=== PATIENT | male | born 1985 | race Asian ===

== ENCOUNTER → 2016-09-01 00:18 | Emergency (ER) | payer OTHER ==
[~2016-09-01 00:18] MED LIST: NS 0.9% 1000 ML* 1,000 ML IV ONE; Ondansetron INJ* 2 MG/ML VIAL IV ONE
--- NOTE | 2016-09-01 01:38 | ED ---
Kahlil Boyd Erika, scribed for Isidoro Rojas MD on 09/01/16 at 0138 . Abdominal Pain/Male - HPI Summary HPI Summary: Patient is a 30-year-old male presenting to the ED with a CC of diffuse abdominal pain. Patient reports that he has developed similar pains 3 times in the past 3 months. He states he saw a doctor last time he had the pain, with no findings to explain the pain. Current episode started at 22:00. Pt notes nausea , but denies diarrhea. - History of Current Complaint Chief Complaint: EDAbdPain Stated Complaint: ABD PAIN Time Seen by Provider: 09/01/16 01:21 Hx Obtained From: Patient Onset/Duration: Lasting Hours, Still Present Timing: Constant Severity Currently: Moderate Pain Intensity: 9 Pain Scale Used: 0-10 Numeric Location: Diffuse Radiates: No Alleviating Factor(s): Nothing Associated Signs And Symptoms: Positive: Nausea. Negative: Diarrhea - Allergies/Home Medications Allergies/Adverse Reactions: Allergies Allergy/AdvReac Type Severity Reaction Status Date / Time No Known Allergies Allergy Verified 09/01/16 01:50 PMH/Surg Hx/FS Hx/Imm Hx Endocrine/Hematology History: Denies: Hx Diabetes Cardiovascular History: Denies: Hx Hypertension Infectious Disease History: No Infectious Disease History: Denies: Traveled Outside the [place] in Last 30 Days - Family History Known Family History: Negative: Diabetes - Social History Occupation: Student Alcohol Use: None Hx Substance Use: No Substance Use Type: Reports: None Hx Tobacco Use: No Smoking Status (MU): Never Smoked Tobacco Review of Systems Negative: Fever Positive: Abdominal Pain, Nausea. Negative: Diarrhea All Other Systems Reviewed And Are Negative: Yes Physical Exam Triage Information Reviewed: Yes Vital Signs On Initial Exam: Initial Vitals Temp Pulse Resp BP Pulse Ox 98 F 60 16 123/94 100 09/01/16 00:21 09/01/16 00:21 09/01/16 00:21 09/01/16 00:21 09/01/16 00:21 Vital Signs Reviewed: Yes Appearance: Positive: Well-Appearing, No Pain Distress Skin: Positive: Warm Head/Face: Positive: Normal Head/Face Inspection Eyes: Positive: SARAH ENT: Positive: Hearing grossly normal Neck: Positive: Supple Respiratory/Lung Sounds: Positive: Clear to Auscultation, Breath Sounds Present Cardiovascular: Positive: RRR Abdomen Description: Positive: Nontender, No Organomegaly, Soft Bowel Sounds: Positive: Present Musculoskeletal: Positive: Strength/ROM Intact Neurological: Positive: Alert, Oriented to Person Place, Time Psychiatric: Positive: Affect/Mood Appropriate - [place] Coma Scale Coma Scale Total: 15 Diagnostics - Vital Signs Vital Signs Temp Pulse Resp BP Pulse Ox 09/01/16 00:21 98 F 60 16 123/94 100 - Laboratory Lab Statement: Any lab studies that have been ordered have been reviewed, and results considered in the medical decision making process. Re-Evaluation - Re-Evaluation First Eval Re-Evaluation Time: 01:55 Change: Improved Comment: Pt requests discharge at this time, prior to lab work being drawn. Abdominal Pain Fem Course/Dx - Course Assessment/Plan: A 30 y/o M presents to the ED with a CC of diffuse abdominal pain. Pt reports similar episodes in the past. Zofran, IV fluids, and blood work are ordered, but pt declines and requests discharge. He is discharged home with follow up from his PCP. - Diagnoses Provider Diagnoses: Abdominal pain Discharge - Discharge Plan Condition: Improved Disposition: HOME Patient Education Materials: Abdominal Pain (ED) Referrals: [facility] [Primary Care Provider] - 2 Days Additional Instructions: Please follow up with your PCP. The documentation as recorded by the Kahlil matthew Erika accurately reflects the service I personally performed and the decisions made by me, Isidoro Rojas MD.
[2016-09-01 02:25] VITALS: BP 110/61
== END | disposition home or self-care (01) ==
LOC: ED 00:18
DX: R10.9 Unspecified abdominal pain (principal); R07.9 Chest pain, unspecified; R11.0 Nausea
CPT/HCPCS: 96374; 99282; J2405